=== PATIENT | female | born 1945 | race Caucasian/White ===

== ENCOUNTER 2018-09-12 13:34 | Observation (INO) | payer OTHER ==
[~2018-09-12] VITALS: Ht 160 cm; Wt 75.8 kg
[~2018-09-12 13:34] MED LIST: ASPIR 8181 MG PO; CYCLOBENZAPRINE10 MG PO; ESCITALOPRAM10 MG PO; FLE10 PO; GLIPIZIDE5 PO; GLU5XL PO; IBUPROFEN 200200 MG PO; LEVEMIR100 U/M1 SC; LEVEMIR100 U/ML SC; LIPI10 PO; METFORMIN HCL850 MG PO; METFORMIN850 MG PO; NAPROXEN500 MG PO; NEU300 PO; NOR10T PO; PER5 PO; PRILOSEC40 MG PO; PROAIR HFA0.09 MG/Ac IH; QVAR INH; ZES10 PO; ZOLPIDEM5 M1 PO; ZOLPIDEM5 MG PO
[2018-09-12 13:58] VITALS: Ht 160 cm; Wt 75.8 kg
[2018-09-12 17:15] LABS: BASOPHIL % 1.6 % (0-2); PLATELET COUNT 327 x10^3mcL (130-400); RED CELL DISTRIBUTION WIDTH 14.3 % (11.5-14.5)
[2018-09-12 17:32] LABS: CALCIUM 8.8 mg/dL (8.5-10.1); CARBON DIOXIDE 25.7 mmol/L (21-32); CHLORIDE SERUM 109 mmol/L (98-107); CREATININE SERUM 0.7 mg/dL (0.6-1.0); GLUCOSE SERUM 119 mg/dL (74-106); POTASSIUM SERUM 4.1 mmol/L (3.5-5.1); SODIUM SERUM 145 mmol/L (136-145)
[2018-09-12 17:35] LABS: ALBUMIN 3.6 g/dL (3.4-5.0); ALKALINE PHOSPHATASE 70 U/L (46-116); ALT/SGPT 22 U/L (14-59); AST/SGOT 14 U/L (15-37); BILIRUBIN TOTAL 0.27 mg/dL (0.20-1.00); CHOLESTEROL 150 mg/dL (<200); LIPASE 94 IU/L (73-393); TOTAL PROTEIN, SERUM 7.1 g/dL (6.4-8.2); TRIGLYCERIDES 106 mg/dL (<150)
[2018-09-12 17:36] LABS: HDL CHOLESTEROL 75 mg/dL (40-60)
[2018-09-12 17:43] LABS: T3 TOTAL 0.79 ng/mL
[2018-09-12 18:04] LABS: FREE T4 0.87 ng/dL (0.76-1.46); FREE THYROXINE INDEX 2.3 ug/dL (1.4-4.5); T4(THYROXINE) 7.3 ug/dL (4.7-13.3)
[2018-09-12 18:09] LABS: UA SPECIFIC GRAVITY 1.025 (1.005-1.035); microscopic required? YES; urine erythrocyte 2+ (NEGATIVE)
[2018-09-12] MEDS ORDERED: NEURONTIN600 MG PO (19:23)
[2018-09-12] MEDS ORDERED: GOOD SENSE OMEP20 MG PO (19:23)
[2018-09-12] MEDS ORDERED: METFORMIN HCL850 MG PO (19:24)
[2018-09-12] MEDS ORDERED: LIPI20 PO (19:24)
[2018-09-12] MEDS ORDERED: ZESTRIL20 MG PO (19:24)
[2018-09-12] MEDS ORDERED: GLIPIZIDE5 M2 PO (19:25)
[2018-09-13 00:40] VITALS: BP 114/49
[2018-09-13 04:52] VITALS: BP 172/72
[2018-09-13 05:09] VITALS: BP 162/60
[2018-09-13 07:21] LABS: BASOPHIL % 0.5 % (0-2); PLATELET COUNT 305 x10^3mcL (130-400)
[2018-09-13 07:53] LABS: FREE THYROXINE INDEX 2.5 ug/dL (1.4-4.5); T4(THYROXINE) 7.1 ug/dL (4.7-13.3)
[2018-09-13 08:59] VITALS: BP 134/68
[2018-09-13] MEDS ORDERED: LASIX40 MG PO (09:11)
[2018-09-13 09:42] LABS: T3 TOTAL 1.02 ng/mL
[2018-09-13 09:57] LABS: CALCIUM 9.4 mg/dL (8.5-10.1); CARBON DIOXIDE 25.8 mmol/L (21-32); CHLORIDE SERUM 107 mmol/L (98-107); CREATININE SERUM 0.8 mg/dL (0.6-1.0); GLUCOSE SERUM 79 mg/dL (74-106); MAGNESIUM 1.7 mg/dL (1.8-2.4); POTASSIUM SERUM 3.5 mmol/L (3.5-5.1); SODIUM SERUM 143 mmol/L (136-145)
[2018-09-13 12:07] VITALS: BP 157/64
[2018-09-13 12:27] VITALS: BP 134/68
== END 2018-09-13 14:10 | disposition home or self-care (01) | DRG 291 ==
LOC: ED 13:34 → DU 22:40
PROVIDERS: Internal Medicine Pulmonary Disease; Specialist
DX: I11.0 Hypertensive heart disease with heart failure (principal); I50.31 Acute diastolic (congestive) heart failure; E11.42 Type 2 diabetes mellitus with diabetic polyneuropathy; I34.0 Nonrheumatic mitral (valve) insufficiency; R54 Age-related physical debility; F17.210 Nicotine dependence, cigarettes, uncomplicated
CPT/HCPCS: 36600; 82962; 83880; 84439; 85378; 90658; G0378; J1644; J1815; J1940; J7613; J7626; Q0092

== ENCOUNTER 2018-10-18 13:41 | Emergency (ER) | payer OTHER ==
[~2018-10-18] VITALS: Ht 157.5 cm; Wt 76.2 kg
[~2018-10-18 13:41] MED LIST changes: +GLIPIZIDE5 M2 PO; +GOOD SENSE OMEP20 MG PO; +LASIX40 MG PO; +LIPI20 PO; +NEURONTIN600 MG PO; +ZESTRIL20 MG PO
[2018-10-18 13:48] VITALS: Ht 157.5 cm; Wt 76.2 kg
[2018-10-18 14:44] LABS: BASOPHIL % 0.4 % (0-2); PLATELET COUNT 328 x10^3mcL (130-400); RED CELL DISTRIBUTION WIDTH 14.2 % (11.5-14.5)
[2018-10-18 14:56] LABS: CALCIUM 8.9 mg/dL (8.5-10.1); CARBON DIOXIDE 21.4 mmol/L (21-32); CHLORIDE SERUM 102 mmol/L (98-107); CREATININE SERUM 1.1 mg/dL (0.6-1.0); GLUCOSE SERUM 164 mg/dL (74-106); POTASSIUM SERUM 5.5 mmol/L (3.5-5.1); SODIUM SERUM 137 mmol/L (136-145)
[2018-10-18 15:01] LABS: ALBUMIN 3.4 g/dL (3.4-5.0); ALKALINE PHOSPHATASE 72 U/L (46-116); ALT/SGPT 23 U/L (14-59); AST/SGOT 28 U/L (15-37); BILIRUBIN TOTAL 0.4 mg/dL (0.20-1.00); TOTAL PROTEIN, SERUM 7.1 g/dL (6.4-8.2)
[2018-10-18 15:32] VITALS: BP 130/57
== END 2018-10-18 15:30 | disposition home or self-care (01) ==
LOC: ED 13:41
PROVIDERS: Emergency Medicine
DX: E87.5 Hyperkalemia (principal); N28.9 Disorder of kidney and ureter, unspecified; I11.0 Hypertensive heart disease with heart failure; I50.9 Heart failure, unspecified; E11.9 Type 2 diabetes mellitus without complications; Z88.0 Allergy status to penicillin; Z88.5 Allergy status to narcotic agent; Z98.890 Other specified postprocedural states
CPT/HCPCS: 36415

== ENCOUNTER 2018-10-20 14:09 | Emergency (ER) | payer OTHER ==
[~2018-10-20] VITALS: Ht 165.1 cm; Wt 76.7 kg
[2018-10-20 14:21] VITALS: Ht 165.1 cm; Wt 76.7 kg
[2018-10-20 15:11] LABS: CALCIUM 8.9 mg/dL (8.5-10.1); CARBON DIOXIDE 29.2 mmol/L (21-32); CHLORIDE SERUM 102 mmol/L (98-107); CREATININE SERUM 1.1 mg/dL (0.6-1.0); GLUCOSE SERUM 109 mg/dL (74-106); POTASSIUM SERUM 4.7 mmol/L (3.5-5.1); SODIUM SERUM 140 mmol/L (136-145)
[2018-10-20 15:59] VITALS: BP 107/72
== END 2018-10-20 15:59 | disposition home or self-care (01) ==
LOC: ED 14:09
DX: Z00.00 Encounter for general adult medical examination without abnormal findings (principal); I10 Essential (primary) hypertension; E11.9 Type 2 diabetes mellitus without complications; Z88.0 Allergy status to penicillin; Z88.5 Allergy status to narcotic agent; Z98.890 Other specified postprocedural states

== ENCOUNTER 2019-04-28 08:33 | Observation (INO) | payer OTHER ==
[~2019-04-28] VITALS: Ht 157.5 cm; Wt 79.4 kg
[2019-04-28] MEDS ORDERED: LISINOPRIL2.5 MG (08:52)
[2019-04-28] MEDS ORDERED: METFORMIN HYDR500 M1 (08:53)
[2019-04-28] MEDS ORDERED: GABAPENTIN100 M2 (08:53)
[2019-04-28] MEDS ORDERED: CYMBALTA20 M1 (08:53)
[2019-04-28] MEDS ORDERED: GLU5XL (08:54)
[2019-04-28] MEDS ORDERED: FUROSEMIDE20 MG (08:54)
[2019-04-28 09:10] LABS: BASOPHIL % 0.3 % (0-2); PLATELET COUNT 309 x10^3mcL (130-400)
[2019-04-28 09:19] LABS: CALCIUM 9.8 mg/dL (8.5-10.1); CARBON DIOXIDE 19.5 mmol/L (21-32); CHLORIDE SERUM 104 mmol/L (98-107); CREATININE SERUM 0.8 mg/dL (0.6-1.0); GLUCOSE SERUM 180 mg/dL (74-106); SODIUM SERUM 141 mmol/L (136-145)
[2019-04-28 09:24] LABS: ALBUMIN 3.5 g/dL (3.4-5.0); ALKALINE PHOSPHATASE 130 U/L (46-116); ALT/SGPT 35 U/L (14-59); AST/SGOT 13 U/L (15-37); TOTAL PROTEIN, SERUM 7.5 g/dL (6.4-8.2)
[2019-04-28] MEDS ORDERED: GOOD SENSE OMEP20 MG PO (15:12)
[2019-04-28] MEDS ORDERED: GLIPIZIDE XL5 M1 PO (15:12)
[2019-04-28] MEDS ORDERED: CARVEDILOL3.125 M1 PO (15:13)
[2019-04-28] MEDS ORDERED: METFORMIN HCL850 MG PO (15:13)
[2019-04-28] MEDS ORDERED: IBUPROFEN400 MG PO (15:14)
[2019-04-28] MEDS ORDERED: LIPI20 GT (15:14)
[2019-04-28] MEDS ORDERED: CYMBALTA30 M1 PO (15:15)
[2019-04-28] MEDS ORDERED: NEURONTIN600 MG PO (15:16)
[2019-04-28] MEDS ORDERED: LASIX40 MG PO (15:16)
[2019-04-28] MEDS ORDERED: NORCO1 TA2 PO (15:18)
[2019-04-28 15:45] VITALS: BP 185/80
[2019-04-28 16:02] VITALS: Ht 157.5 cm; Wt 79.4 kg
[2019-04-28 16:41] VITALS: BP 160/64
[2019-04-28 20:37] VITALS: BP 163/60
[2019-04-29 05:28] VITALS: BP 128/68
[2019-04-29 08:32] VITALS: BP 161/57
[2019-04-29 12:08] VITALS: BP 146/64
[2019-04-29] MEDS ORDERED: AZITHROMYCIN250 M1 PO (12:21)
[2019-04-29 17:00] LABS: BASOPHIL % 0.3 % (0-2); PLATELET COUNT 306 x10^3mcL (130-400); RED CELL DISTRIBUTION WIDTH 14.9 % (11.5-14.5)
[2019-04-29 17:17] LABS: CALCIUM 9.6 mg/dL (8.5-10.1); CARBON DIOXIDE 21.2 mmol/L (21-32); CHLORIDE SERUM 108 mmol/L (98-107); CREATININE SERUM 1.2 mg/dL (0.6-1.0); GLUCOSE SERUM 70 mg/dL (74-106); POTASSIUM SERUM 4.3 mmol/L (3.5-5.1); SODIUM SERUM 142 mmol/L (136-145)
[2019-04-29 18:00] VITALS: BP 113/60
== END 2019-04-29 21:09 | disposition short-term general hospital (02) | DRG 203 ==
LOC: ED 08:33 → DU 14:02
PROVIDERS: Emergency Medicine; ADMIT Internal Medicine Pulmonary Disease
DX: J20.9 Acute bronchitis, unspecified (principal); I10 Essential (primary) hypertension; E78.5 Hyperlipidemia, unspecified; E11.9 Type 2 diabetes mellitus without complications; J44.9 Chronic obstructive pulmonary disease, unspecified; S72.002D Fracture of unspecified part of neck of left femur, subsequent encounter for closed fracture with routine healing; S92.901D Unspecified fracture of right foot, subsequent encounter for fracture with routine healing; W19.XXXD Unspecified fall, subsequent encounter; Z87.891 Personal history of nicotine dependence
CPT/HCPCS: 82962; G0378; J1650; J2405; Q0092; Q9967

== ENCOUNTER 2019-12-05 15:16 | Emergency (ER) | payer OTHER ==
[~2019-12-05] VITALS: Ht 157.5 cm; Wt 68.0 kg
[~2019-12-05 15:16] MED LIST changes: +AZITHROMYCIN250 M1 PO; +CARVEDILOL3.125 M1 PO; +CYMBALTA20 M1; +CYMBALTA30 M1 PO; +FUROSEMIDE20 MG; +GABAPENTIN100 M2; +GLIPIZIDE XL5 M1 PO; +GLU5XL; +IBUPROFEN400 MG PO; +LIPI20 GT; +LISINOPRIL2.5 MG; +METFORMIN HYDR500 M1; +NORCO1 TA2 PO
[2019-12-05 15:21] VITALS: Ht 157.5 cm; Wt 68.0 kg
[2019-12-05 16:15] LABS: BASOPHIL % 1.5 % (0-2)
[2019-12-05 16:19] LABS: PLATELET COUNT 534 x10^3mcL (130-400); RED CELL DISTRIBUTION WIDTH 17.5 % (11.5-14.5)
[2019-12-05 16:25] LABS: CALCIUM 8.6 mg/dL (8.5-10.1); CARBON DIOXIDE 18.8 mmol/L (21-32); CHLORIDE SERUM 108 mmol/L (98-107); GLUCOSE SERUM 121 mg/dL (74-106); POTASSIUM SERUM 3.5 mmol/L (3.5-5.1); SODIUM SERUM 141 mmol/L (136-145)
[2019-12-05 16:37] LABS: ALKALINE PHOSPHATASE 72 U/L (46-116); ALT/SGPT 10 U/L (14-59); AST/SGOT 10 U/L (15-37); BILIRUBIN TOTAL 0.6 mg/dL (0.20-1.00); HDL CHOLESTEROL 43 mg/dL (40-60); LIPASE 56 IU/L (73-393); T4(THYROXINE) 5.8 ug/dL (4.7-13.3); TOTAL PROTEIN, SERUM 6.3 g/dL (6.4-8.2)
[2019-12-05 16:41] LABS: ALBUMIN 3.1 g/dL (3.4-5.0); CHOLESTEROL 120 mg/dL (<200)
[2019-12-05 20:50] VITALS: BP 161/63
== END 2019-12-05 20:50 | disposition short-term general hospital (02) ==
LOC: ED 15:16
PROVIDERS: Emergency Medicine
DX: S42.021A Displaced fracture of shaft of right clavicle, initial encounter for closed fracture (principal); I11.0 Hypertensive heart disease with heart failure; I50.9 Heart failure, unspecified; E11.9 Type 2 diabetes mellitus without complications; D64.9 Anemia, unspecified; E46 Unspecified protein-calorie malnutrition; Z98.890 Other specified postprocedural states; Z88.0 Allergy status to penicillin; Z88.5 Allergy status to narcotic agent; Z88.6 Allergy status to analgesic agent; X58.XXXA Exposure to other specified factors, initial encounter; Y93.89 Activity, other specified; Y92.89 Other specified places as the place of occurrence of the external cause; Y99.8 Other external cause status
CPT/HCPCS: 36415; 83880; 99406